=== PATIENT | female | born 1990 | race Caucasian/White ===

== ENCOUNTER → 2017-06-12 | Outpatient (CLI) | payer BC, OTHER ==
[~2017-06-12] MED LIST: PREN1TAB60
== END | disposition home or self-care (01) ==
LOC: CFH 15:31
PROVIDERS: ATTEND Family Medicine
DX: M50.20 Other cervical disc displacement, unspecified cervical region (principal); R20.2 Paresthesia of skin; V89.2XXA Person injured in unspecified motor-vehicle accident, traffic, initial encounter; Z87.828 Personal history of other (healed) physical injury and trauma
CPT/HCPCS: 72141; 72146